=== PATIENT | female | born 1955 ===

== ENCOUNTER → 2024-05-25 | Emergency (ER) | payer OTHER ==
[~2024-05-25] VITALS: Ht 167.6 cm; Wt 72.7 kg
[2024-05-25 14:54] VITALS: BP 123/76; PULSE 67; RESP 18; TEMP 97.8
[2024-05-25] MEDS: CLINDAMYCIN PHOS 150 MG/ML 4 ML VIAL IM ONE (17:20)
== END | disposition still patient (30) ==
LOC: EMS 14:11
DX: L03.311 Cellulitis of abdominal wall (principal)
CPT/HCPCS: 99283; 96372; J3490